=== PATIENT | female | born 1980 | race Caucasian/White ===

== ENCOUNTER 2017-08-22 21:20 | Emergency (ER) | payer MEDICAID, SELFPAY ==
[2017-08-22 21:21] VITALS: BP 128/69; PULSE 78; RESP 16; TEMP 37.3; O2SAT 99; BMI 30.2
--- NOTE | 2017-08-22 22:56 | US_ITS ---
STUDY: FIRST TRIMESTER OBSTETRICAL ULTRASOUND REASON FOR EXAM: Female, 37 years old. Bleeding LMP: 06/26/2017 TECHNIQUE: Transvaginal PRIOR ULTRASOUND: None. FINDINGS: No intrauterine gestation is seen at this time. The endometrial stripe is 12 mm thick. The estimated gestation age (EGA) by LMP is 8 weeks, 1 days. The estimated date of delivery (SANAZ) by LMP is 04/02/2018. The uterus measures 9.0 x 4.7 x 4.4. There is no demonstrated uterine fibroid. The cervix is closed. The right ovary measures 3.0 x 2.1 x 1.5. There is no right ovarian cyst. There is no visualized right adnexal mass or complex lesion. The left ovary measures 2.9 x 2.2 x 1.8. There is no left ovarian cyst. There is no visualized left adnexal mass or complex lesion. There is no fluid in the cul de sac. US/Transvaginal w/Preg US IMPRESSION: No intrauterine gestation is seen at this time. Depending on the current beta hCG level, this ultrasound result could suggest intrauterine gestation too early for sonographic detection, missed , or ectopic gestation of unknown location. Continued beta hCG and ultrasound follow-up is recommended. Electronically Signed: Geremias Mahajan MD at 0:45 EDT Tel , Service support ,
--- NOTE | 2017-08-22 23:11 | ED.DCSUM_ITS ---
- ER Visit Summary Date of Service: 08/22/17 Chief Complaint: Vaginal bleeding and History of Present Illness: The patient is a 37 F presenting with vaginal bleeding in . Patient states she noted blood in her underwear today. It is less than a normal period. She states the bleeding has now slowed down. She has no abdominal pain or cramping. She is approximately 6 weeks . She is Ab1. Denies other complaints. Physical Examination: Vitals are stable. Patient is afebrile. Alert no acute distress. HEENT exam is unremarkable. Neck is supple. Lungs are clear and equal bilaterally. Heart is regular rate and rhythm. Abdomen is soft nontender nondistended. No guarding or rebound. Pelvic: Small amount of blood in the vaginal vault with no active bleeding. Cervix is closed. No adnexal tenderness Extremities are unremarkable. Skin is warm and dry. Remainder of exam is unremarkable. Emergency Department Course and Treatment: Blood type is B+. HCG quant is 1930. Ultrasound shows no evidence of IUP. Patient states she had an ultrasound last week which showed intrauterine therefore this likely reveals a miscarriage. She is advised to follow-up with her [employer] for repeat quant. Advised return to ED for any worsening complaints. Disposition: Discharge home Impression: Threatened miscarriage This note was generated with [employer] dictation software. It may contain incorrect words, spelling, and punctuation that were not noted in review of the chart prior to signing ED Disposition - Plan for ED Patient: Chief Complaint: Vag Bld, Preg Instructions: ED Miscarriage Poss Referrals: Shannon Dumont MD [STAFF PHYSICIAN] - Care Physician,No Primary [Primary Care Provider] -
[2017-08-23 00:40] LABS: hCG Titer Quant., Serum 1930 mIU/mL (<9 non-preg)
[2017-08-23 01:03] VITALS: RESP 18
--- NOTE | 2017-08-23 01:26 | ED.DEP ---
ED Disposition - Plan for ED Patient: Chief Complaint: Vag Bld, Preg Instructions: ED Miscarriage Poss Referrals: Care Physician,No Primary [Primary Care Provider] - Shannon Dumont MD [STAFF PHYSICIAN] -
[2017-08-23 01:45] VITALS: RESP 18
== END 2017-08-23 01:46 | disposition home or self-care (01) ==
LOC: ED 23:00
PROVIDERS: Emergency Provider Emergency Medicine
DX: O20.0 Threatened abortion (principal); Z3A.01 Less than 8 weeks gestation of pregnancy; Z87.891 Personal history of nicotine dependence
CPT/HCPCS: 76817; 84702; 86900; 99282

== ENCOUNTER 2017-10-17 11:54 | Emergency (ER) | payer MEDICAID, SELFPAY ==
[2017-10-17 11:55] VITALS: BP 146/75; PULSE 83; RESP 18; TEMP 36.6; O2SAT 100; BMI 31.0
--- NOTE | 2017-10-17 12:33 | ED.DEP ---
ED Disposition - Plan for ED Patient: Chief Complaint: Bite Instructions: Tick Bites Referrals: Care Physician,No Primary [Primary Care Provider] - Quin Ramirez MD [STAFF PHYSICIAN] -
[2017-10-17] MEDS: Doxycycline 100 MG CAPSULE 200 MG PO (12:39)
--- NOTE | 2017-10-17 12:40 | ED.DCSUM_ITS ---
- ER Visit Summary Date of Service: 10/17/17 Chief Complaint: Tick bite History of Present Illness: The patient is a 37 F presenting with tick bite. Patient states she found a tick on her scalp on Wednesday. She believes she pulled most of the tick out. She is unsure if all of the tick was removed. She is unsure how long the tick was on her scalp but states it was likely several days. Denies other complaints. Physical Examination: Vitals are stable. Patient is afebrile. Alert no acute distress. HEENT exam is unremarkable. Small area of erythema on the right posterior scalp. There is no foreign body palpated. Neck is supple. Lungs are clear and equal bilaterally. Heart is regular rate and rhythm. Abdomen is soft nontender nondistended. Extremities are unremarkable. Skin is warm and dry. No focal neurologic deficit. Remainder of exam is unremarkable. Emergency Department Course and Treatment: Due to the duration of the possible tick exposure, she is given doxycycline po x1. She is advised to follow-up with primary care physician. Advised return to ED if worsening complaints. Disposition: Discharge home Impression: Tick bite This note was generated with [employer] dictation software. It may contain incorrect words, spelling, and punctuation that were not noted in review of the chart prior to signing ED Disposition - Plan for ED Patient: Chief Complaint: Bite Instructions: Tick Bites Referrals: Quin Ramirez MD [STAFF PHYSICIAN] - Care Physician,No Primary [Primary Care Provider] -
== END 2017-10-17 12:58 | disposition home or self-care (01) ==
LOC: ED 12:41
PROVIDERS: Emergency Provider Emergency Medicine
DX: S00.06XA Insect bite (nonvenomous) of scalp, initial encounter (principal); W57.XXXA Bitten or stung by nonvenomous insect and other nonvenomous arthropods, initial encounter; Y93.9 Activity, unspecified; Y92.9 Unspecified place or not applicable; Y99.9 Unspecified external cause status
CPT/HCPCS: 99282